=== PATIENT | female | born 1995 | race Caucasian/White ===

== ENCOUNTER 2018-02-12 19:21 | Emergency (ER) | payer SELFPAY ==
[2018-02-12 19:24] VITALS: BMI 23.9
[2018-02-12 19:27] VITALS: BP 131/84; PULSE 62; RESP 16; TEMP 98.4; O2SAT 99
[2018-02-12] MEDS ORDERED: cefTRIAXone (Rocephin) 250 mg Inj IM STA (19:46)
--- NOTE | 2018-02-12 19:47 | ED PDOC ---
HPI: Female Pain Time Seen by Provider: 02/12/18 19:22 Chief Complaint (Nursing): Female Genitourinary Chief Complaint (Provider): Female Genitourinary History Per: Patient History/Exam Limitations: no limitations Additional Complaint(s): 22 year old female presents to the ED with concerns that she may have been exposed to an STD. Patient states her boyfriend of 1.5 yeasrs was may positive for gonorrhea or chlamydia. Pt would like to be treated. She denies dysuria, hematuria or vaginal discharge. PMD: none provided Past Medical History Reviewed: Historical Data, Nursing Documentation, Vital Signs Vital Signs: Last Vital Signs Temp 98.4 F 02/12/18 19:24 Pulse 62 02/12/18 19:24 Resp 16 02/12/18 19:24 BP 131/84 02/12/18 19:24 Pulse Ox 99 02/12/18 19:24 - Medical History PMH: No Chronic Diseases - Surgical History Surgical History: No Surg Hx - Family History Family History: States: Unknown Family Hx - Home Medications Home Medications: Ambulatory Orders Medication Instructions Recorded Acetaminophen with Codeine 1 tab PO Q6 PRN #10 tab 11/01/14 [Tylenol with Codeine No. 3 300 mg-30 mg] Cephalexin [Keflex] 500 mg PO BID #14 cap 11/01/14 Acetaminophen/Codeine Phosph 1 tab PO QID PRN #10 tab 01/20/15 [Acetaminophen and Codeine Phosphate #3 300 mg] Amoxicillin/Clavulanate [Augmentin 1 tab PO BID 7 Days tab 01/20/15 875 MG-125 MG] Amoxicillin 500 mg PO BID #20 tablet 08/05/16 oxyCODONE/Acetaminophen [Percocet 1 tab PO Q6H PRN #5 tab 08/05/16 5/325 mg Tab] - Allergies Allergies/Adverse Reactions: Allergies Allergy/AdvReac Type Severity Reaction Status Date / Time No Known Allergies Allergy Verified 02/12/18 19:23 Review of Systems ROS Statement: Except As Marked, All Systems Reviewed And Found Negative Constitutional: Negative for: Fever, Chills Gastrointestinal: Negative for: Nausea, Vomiting, Abdominal Pain Genitourinary Female: Negative for: Dysuria, Hematuria, Vaginal Bleeding Physical Exam - Reviewed Nursing Documentation Reviewed: Yes Vital Signs Reviewed: Yes - Physical Exam Appears: Positive for: Non-toxic, No Acute Distress Head Exam: Positive for: ATRAUMATIC, NORMOCEPHALIC Skin: Positive for: Normal Color, Warm, Dry Eye Exam: Positive for: Normal appearance Neck: Positive for: Normal, Painless ROM Cardiovascular/Chest: Negative for: Bradycardia, Tachycardia Respiratory: Negative for: Respiratory Distress Extremity: Positive for: Normal ROM Neurologic/Psych: Positive for: Alert, Oriented. Negative for: Motor/Sensory Deficits - ECG O2 Sat by Pulse Oximetry: 99 (RA) Pulse Ox Interpretation: Normal Medical Decision Making Medical Decision Making: Initial Impression: Initial Plan: ED urine ED urine dipstick Chlamydia/GC RNA Rocephin 250mg IM Zithromax 1000mg PO Scribe Attestation: Documented by Santiago Rodriguez acting as a scribe for Marah CANDELARIA. Provider Scribe Attestation: All medical record entries made by the Scribe were at my direction and personally dictated by me. I have reviewed the chart and agree that the record accurately reflects my personal performance of the history, physical exam, medical decision making, and the department course for this patient. I have also personally directed, reviewed, and agree with the discharge instructions and disposition. Disposition - Clinical Impression Clinical Impression: Routine screening for STI (sexually transmitted infection) - Patient ED Disposition Is Patient to be Admitted: No Counseled Patient/Family Regarding: Diagnosis, Need For Followup - Disposition Disposition: Routine/Home Disposition Time: 20:19 Condition: STABLE Instructions: Screening for Sexually Transmitted Infections Forms: [employer] (Spanish)
[2018-02-12] MEDS ORDERED: cefTRIAXone (Rocephin) 250 mg Inj ONE (20:10)
[2018-02-12] MEDS ORDERED: Sterile Water 10 ML IV ONE (20:11)
== END 2018-02-12 20:28 | disposition home or self-care (01) ==
LOC: H.ER 19:21
DX: Z11.3 Encounter for screening for infections with a predominantly sexual mode of transmission (principal)
CPT/HCPCS: 81025; 87491; 87591; 96372; 99283; J0696

== ENCOUNTER 2018-04-20 04:35 | Emergency (ER) | payer MEDICAID ==
[2018-04-20 04:35] VITALS: BMI 23.9
[2018-04-20 05:10] VITALS: RESP 18
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
--- NOTE | 2018-04-20 09:08 | ED PDOC ---
- Laboratory Results Urine POC: Negative - ECG O2 Sat by Pulse Oximetry: 98 (RA) Medical Decision Making Medical Decision Making: received patient from Dr. Castro who is pending CT evaluation for facial injuries. All CTs read by radiology. Reports reviewed. No evidence of fractures, or intracranial process. will discharge. Disposition Doctor Will See Patient In The: Office Counseled Patient/Family Regarding: Diagnosis, Need For Followup - Clinical Impression Clinical Impression: Accidental tooth loss, Head injury - POA Present On Arrival: Falls Or Trauma - Disposition Referrals: Mihaela Stephens [Outside] Disposition: Routine/Home Disposition Time: 09:08 Condition: STABLE Instructions: Closed Head Injury (DC) Forms: [employer] (Danish)
[2018-04-20 09:18] VITALS: BP 125/60; PULSE 81; TEMP 97.8; O2SAT 99
--- NOTE | 2018-04-20 12:21 | CT ---
Date of service: 04/20/2018 PROCEDURE: CT Cervical Spine without contrast HISTORY: trauma COMPARISON: None TECHNIQUE: Axial computed tomography images were obtained of the cervical spine without the use of intravenous contrast. Coronal and sagittal reformatted images were created and reviewed. Radiation dose: Total exam DLP = 349 mGy-cm. This CT exam was performed using one or more of the following dose reduction techniques: Automated exposure control, adjustment of the mA and/or kV according to patient size, and/or use of iterative reconstruction technique. FINDINGS: VERTEBRAE: No fracture. Straightening of the normal cervical lordosis. No destructive bony lesion. DISCS/SPINAL CANAL/NEURAL FORAMINA: No significant central canal or neural foraminal stenosis. Discs heights are grossly preserved. PARASPINAL SOFT TISSUES: Unremarkable. OTHER FINDINGS: None. IMPRESSION: Straightening of the normal cervical lordosis which may be related to positioning/spasm. No acute abnormality.
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
== END 2018-04-20 09:20 | disposition home or self-care (01) ==
LOC: H.ER 04:35
DX: S09.90XA Unspecified injury of head, initial encounter (principal); K08.112 Complete loss of teeth due to trauma, class II; W19.XXXA Unspecified fall, initial encounter; Y93.55 Activity, bike riding